=== PATIENT | male | born 1995 | race Two or more races ===

== ENCOUNTER 2019-01-12 19:01 | Emergency (ER) | payer OTHER ==
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
[2019-01-12] MEDS ORDERED: CYCLOBENZAPRINE HCL 10 MG TABLET PO ONE (21:54)
[2019-01-12] MEDS ORDERED: ACETAMINOPHEN 325 MG TABLET PO ONE (21:54)
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
[2019-01-12 22:15] VITALS: BP 123/71
== END 2019-01-12 22:28 | disposition home or self-care (01) ==
LOC: ER 19:01
DX: S16.1XXA Strain of muscle, fascia and tendon at neck level, initial encounter (principal); M79.10 Myalgia, unspecified site; M54.2 Cervicalgia; V89.2XXA Person injured in unspecified motor-vehicle accident, traffic, initial encounter; F17.200 Nicotine dependence, unspecified, uncomplicated
CPT/HCPCS: 70360; 99283